=== PATIENT | male | born 1995 | race Two or more races ===

== ENCOUNTER 2020-11-28 00:13 | Emergency (ER) | payer OTHER ==
[~2020-11-28] VITALS: Ht 170.2 cm; Wt 72.7 kg
[2020-11-28 00:15] VITALS: BP 126/68
[2020-11-28] MEDS ORDERED: ACETAMINOPHEN 325 MG TABLET PO ONE (00:45)
[2020-11-28] MEDS ORDERED: IBUPROFEN 400 MG TABLET PO ONE (00:45)
[2020-11-28] MEDS ORDERED: LIDOCAINE 1% 20 ML VIAL ID ONE (02:45)
== END 2020-11-28 06:13 | disposition home or self-care (01) ==
LOC: EMS 00:19
DX: S82.51XA Displaced fracture of medial malleolus of right tibia, initial encounter for closed fracture (principal); F17.210 Nicotine dependence, cigarettes, uncomplicated; W01.0XXA Fall on same level from slipping, tripping and stumbling without subsequent striking against object, initial encounter; Y93.39 Activity, other involving climbing, rappelling and jumping off; Y92.89 Other specified places as the place of occurrence of the external cause; Y99.8 Other external cause status
CPT/HCPCS: 27818; 73590; 73610; 73630; 99284; J3490; 27840